=== PATIENT | female | born 1975 | race Caucasian/White ===

== ENCOUNTER 2020-07-30 14:04 | Emergency (ER) | payer OTHER, SELFPAY ==
[~2020-07-30] VITALS: Ht 157.5 cm; Wt 55.8 kg
[2020-07-30 14:04] VITALS: BP_SYST 124
[2020-07-30 14:45] VITALS: BP_SYST 126
== END 2020-07-30 14:45 | disposition home or self-care (01) ==
LOC: SED 14:04
DX: Z20.828 Contact with and (suspected) exposure to other viral communicable diseases (principal)
CPT/HCPCS: 99283; C9803; U0003